=== PATIENT | male | born 1940 | race Hispanic/Latino ===

== ENCOUNTER 2024-02-04 09:05 | Emergency (ER) | payer MEDICARE, OTHER ==
[2024-02-04] MEDS ORDERED: Ondansetron ODT 4 MG TAB ONE (10:16)
[2024-02-04] MEDS ORDERED: Boostrix 0.5 ML (Tdap) VIAL (>/=7 yrs of age) ONE (10:16)
[2024-02-04] MEDS ORDERED: Morphine 4 MG/ML VIAL ONE (10:16)
[2024-02-04] MEDS ORDERED: Lidocaine 1% w/Epinephrine 1:100K 20 ML VIAL ONE (10:19)
[2024-02-04] MEDS ORDERED: Bacitracin 1 PK ONE (11:50)
== END 2024-02-04 11:58 | disposition home or self-care (01) ==
LOC: ERS 09:05
DX: S01.01XA Laceration without foreign body of scalp, initial encounter (principal); S01.411A Laceration without foreign body of right cheek and temporomandibular area, initial encounter; W22.8XXA Striking against or struck by other objects, initial encounter; Z75.8 Other problems related to medical facilities and other health care; Z87.891 Personal history of nicotine dependence
CPT/HCPCS: 70450; 90715; J2272; Q0162; 12011; 12034; 90471; 96372